=== PATIENT | female | born 1955 | race Caucasian/White ===

== ENCOUNTER → 2018-02-07 | Outpatient (CLI) | payer BC ==
[~2018-02-07] MED LIST: LISI2.5T PO; LORA0.5T PO; NEBI5TAB8 PO; PARO12.52 PO
--- NOTE | 2018-02-07 19:20 | Diagnostic Imaging Report ---
INDICATION: Routine screening. Comparison is made with prior study from 01/26/2016 and 07/28/2014. 2-D and 3-D bilateral screening mammography with CAD was performed. The current study was also evaluated with a Computer Aided Detection (CAD) system. FINDINGS: Scattered fibroglandular densities are identified bilaterally. There is a biopsy clip in the upper outer right breast. No mass or malignant-appearing microcalcifications are seen. There are benign calcifications bilaterally. The axillae are unremarkable. IMPRESSION: No mammographic features suspicious for malignancy are identified. ACR BI-RADS Category 2: Benign findings. Result letter will be mailed to the patient. Note: At least 10% of breast cancer is not imaged by mammography. Dictated by: Dictated on workstation # [id number]
== END ==
LOC: RAD 13:41
PROVIDERS: ATTEND Family Medicine
DX: Z12.31 Encounter for screening mammogram for malignant neoplasm of breast (principal)
CPT/HCPCS: 77067

== ENCOUNTER → 2019-06-24 | Outpatient (CLI) | payer MEDICARE, OTHER ==
--- NOTE | 2019-06-24 17:14 | Diagnostic Imaging Report ---
INDICATION: Postmenopausal female. COMPARISON: 02/20/2008. FINDINGS: AP Spine L1-L4: [BMD (g/cm2): 0.864] [T-Score: -2.8] [Z-Score: -0.9] [BMD Previous: 0.923] [BMD % Change: -6.4] LT Hip Neck: [BMD (g/cm2): 0.819] [T-Score: -1.6] [Z-Score: 0.1] LT Hip Total: [BMD (g/cm2):0.814] [T-Score:-1.5] [Z-Score: -0.1] [BMD Previous: 0.902] [BMD % Change: -9.8] RT Hip Neck: [BMD (g/cm2):0.855] [T-Score:-1.3] [Z-Score:0.4] RT Hip Total: [BMD (g/cm2):0.883] [T-score:-1.0] [Z-Score:0.4] [BMD Previous:0.910] [BMD % Change:-3.0] World Health Organization criteria for BMD interpretation classify patients as Normal (T-score at or above -1.0), Osteopenic (T-score between -1.0 and -2.5) or Osteoporotic (T-score at or below -2.5). LIMITATIONS AND MODIFICATION: None. FRACTURE RISK (FRAX SCORE): Not applicable. IMPRESSION: 1. Osteoporosis. 2. Bone Mineral density has decreased, as detailed above. 3. See below National Osteoporosis Foundation guidelines on when to potentially initiate pharmacologic therapy. Based on the National Osteoporosis Foundation Guidelines, pharmacologic treatment should be initiated in any of the following, unless clinical conditions suggest otherwise: * Any patient with prior fragility fracture of the hip or vertebrae. A spine fracture indicates 5X risk for subsequent spine fracture and 2X risk for subsequent hip fracture. * Osteoporosis (T-score <-2.5). * Postmenopausal women and men age 50 and older with low bone mass/osteopenia (T-score between -1.0 and -2.5) by DXA and 10-year major osteoporotic fracture greater than 20% or a 10-year probability of hip fracture greater than 3%. These fracture risks are supplied above in the FRAX score, if applicable. * Clinician judgment and/or patient preferences may indicate treatment for people with 10-year fracture probabilities above or below these levels. Dictated by: Dictated on workstation # [id number]
== END ==
LOC: RAD 09:58
PROVIDERS: ATTEND Family Medicine
DX: M81.0 Age-related osteoporosis without current pathological fracture (principal); Z78.0 Asymptomatic menopausal state
CPT/HCPCS: 77080

== ENCOUNTER → 2020-07-12 | Outpatient (CLI) | payer MEDICARE, OTHER ==
[~2020-07-12] MED LIST changes: -PARO12.52 PO; +PARO12.53 PO
--- NOTE | 2020-07-12 11:07 | Diagnostic Imaging Report ---
INDICATION: Routine screening. COMPARISON: 02/07/2018 and 01/26/2016. TECHNIQUE: 2D and 3D bilateral screening mammography was performed with CAD. FINDINGS: Scattered fibroglandular densities are identified bilaterally. A biopsy clip in the upper outer right breast is again noted. There are benign calcifications in the breast. No mass or malignant appearing microcalcifications are seen. The axillae are unremarkable. IMPRESSION: No mammographic features suspicious for malignancy are identified. ACR BI-RADS Category 2: Benign findings. Result letter will be mailed to the patient. Note: At least 10% of breast cancer is not imaged by mammography. Dictated by: Dictated on workstation # [id number]
== END ==
LOC: RAD 08:06
PROVIDERS: ATTEND Family Medicine
DX: Z12.31 Encounter for screening mammogram for malignant neoplasm of breast (principal)
CPT/HCPCS: 77063; 77067

== ENCOUNTER 2021-08-02 06:03 | Outpatient (CLI) | payer MEDICARE, OTHER ==
[~2021-08-02] VITALS: Ht 157.5 cm; Wt 62.6 kg
[2021-08-02] MEDS ORDERED: NEBI5TAB8 PO (12:56)
[2021-08-02] MEDS ORDERED: LISI2.5T13 PO (12:56)
[2021-08-02] MEDS ORDERED: VENL50TA2 PO (12:56)
[2021-08-02] MEDS ORDERED: OMG1KC PO (12:56)
[2021-08-02] MEDS ORDERED: CALC-697 PO (12:56)
[2021-08-02] MEDS ORDERED: LORA-404 PO (12:56)
[2021-08-02] MEDS ORDERED: ASPI-1238 PO (12:56)
[2021-08-02] MEDS ORDERED: C,E,1CAP PO (12:56)
== END 2021-08-02 15:26 | disposition home or self-care (01) ==
LOC: PREOP 06:03
PROVIDERS: ATTEND Surgery
DX: Z01.818 Encounter for other preprocedural examination (principal)

== ENCOUNTER 2021-08-09 07:51 | Day surgery (SDC) | payer MEDICARE, OTHER ==
[2021-08-09] VITALS (7 sets, daily range): BP systolic 93–147; BP diastolic 54–80
[~2021-08-09] VITALS: Ht 157 cm; Wt 62.6 kg
[~2021-08-09 07:51] MED LIST changes: +ASPI-1238 PO; +C,E,1CAP PO; +CALC-697 PO; +LISI2.5T13 PO; +LORA-404 PO; +OMG1KC PO; +VENL50TA2 PO
[2021-08-09] MEDS ORDERED: LACTATED RINGERS 1,000 ML IV ONE (07:58)
[2021-08-09] MEDS ORDERED: LACTATED RINGERS 1,000 ML IV STA (08:00)
[2021-08-09] MEDS ORDERED: PROPOFOL INJECTION 50 ML IV ONE (08:24)
[2021-08-09] MEDS ORDERED: MIDAZOLAM 2 MG/2 ML (VERSED) VIAL ONE (08:42)
--- NOTE | 2021-08-09 09:31 | Progress Note-Post Operative ---
Post-Operative Progess Note Surgeon (s)/Brickmason Supervisor (s) Surgeon MILLICENT ALONZO DO Brickmason Supervisor: na Pre-Operative Diagnosis family history colon cancer Post-Operative Diagnosis ascending colon polyp, diverticulosis Procedure & Operative Findings Date of Procedure 08/09/21 Procedure Performed/Findings colonoscopy c hot bx polypectomy Anesthesia Type per pst manager Estimated Blood Loss Estimated blood loss (mL): none Specimens/Packing Specimens Removed ascending colon polyp MILLICENT ALONZO DO Aug 09, 2021 09:31
--- NOTE | 2021-08-09 09:32 | Discharge Inst-Simple/Standard ---
Discharge Inst-Standard Patient Instructions/Follow Up Plan of Care/Instructions/FU: 2 weeks Jerardo Activity as Tolerated: Yes Discharge Diet: Regular Diet (high fiber) MILLICENT ALONZO DO Aug 09, 2021 09:32
--- NOTE | 2021-08-09 17:58 | OPERATIVE REPORT ---
DATE OF SERVICE: 08/09/2021 PREOPERATIVE DIAGNOSIS: Family history of colon cancer. POSTOPERATIVE DIAGNOSIS: Ascending colon polyp, diverticulosis. PROCEDURE: Colonoscopy with hot biopsy polypectomy. SURGEON: Millicent Kurtz DO ANESTHESIA: Per SUPERVISOR VARNISH. ESTIMATED BLOOD LOSS: None. COMPLICATIONS: None. INDICATIONS: The patient is a 66-year-old female needing screening colonoscopy for family history of colon cancer. She understands risks and benefits of procedure and wished to proceed with procedure. Consent was signed in the chart. DESCRIPTION OF PROCEDURE: The patient was taken to the endoscopy suite, placed in left lateral recumbent position. Timeout was performed. Digital rectal exam was performed. There were no palpable polyps, masses or ulcerations. Scope was inserted in the rectum, advanced all the way to cecum with minimal difficulty. Prep was adequate. Scope was slowly retracted back. No polyps, masses or ulcerations in the cecum. In the ascending colon, a small polyp that was flat was present, which hot biopsy polypectomy was performed. Scope was then continuously retracted back. No polyps, masses or ulcerations within the remainder of the ascending, transverse, descending and sigmoid colon. Through the sigmoid colon, moderate amount of diverticulosis present. Scope was continued to be retracted back into the rectum, where it was also retroflexed noting no other pathology. Scope was returned to its normal position, slowly withdrawn until completely removed. The patient tolerated procedure well without any complications. She was taken to recovery room in stable condition. RECOMMENDATIONS: The patient will be on high fiber diet due to diverticulosis. The patient will follow up on pathology of polyp. The patient will need repeat colonoscopy in 5 years if benefits outweigh the risks. Any issues before that be seen at that time. CC: Dr. Seay -- requested, unable to deliver. Job ID: [id number] DocumentID: [id number] Dictated Date: 08/09/2021 09:35:03 Oval Or Circular Glass Cutter Date: 08/09/2021 17:58:34 Dictated By: MILLICENT KURTZ DO
--- NOTE | 2021-08-10 09:54 | Anesthesia-General Post-Op ---
MAC Patient Condition Mental Status/LOC: Same as Preop Cardiovascular: Satisfactory Nausea/Vomiting: Absent Respiratory: Satisfactory Pain: Controlled Complications: Absent Post Op Complications Complications None Follow Up Care/Instructions Patient Instructions None needed. Anesthesiology Discharge Order Discharge Order Patient is doing well, no complaints, stable vital signs, no apparent adverse anesthesia problems. No complications reported per nursing. DIVYA FLORES CRNA Aug 10, 2021 09:54
== END 2021-08-09 10:25 | disposition home or self-care (01) ==
LOC: ENDO 07:51
PROVIDERS: ATTEND Surgery
DX: Z12.11 Encounter for screening for malignant neoplasm of colon (principal); D12.2 Benign neoplasm of ascending colon; K57.30 Diverticulosis of large intestine without perforation or abscess without bleeding; Z80.0 Family history of malignant neoplasm of digestive organs; I10 Essential (primary) hypertension; F41.9 Anxiety disorder, unspecified; Z79.899 Other long term (current) drug therapy; Z79.82 Long term (current) use of aspirin

== ENCOUNTER 2023-02-27 11:06 | Emergency (ER) | payer MEDICARE, OTHER ==
[~2023-02-27 11:06] MED LIST changes: -PARO12.53 PO; +[UNRECOGNIZED DRUG - CODE] PO
--- NOTE | 2023-02-27 11:15 | ED Syncope ---
General Chief Complaint: Dizziness/Syncope Stated Complaint: SYNCOPE Nursing Triage Note: PT TO [facility] 5 BY EMS WITH CC OF SYNCOPE. EMS REPORTS PT WAS AT [employer] WHEN SHE BECAME DIZZY AND PASSED OUT. PT WAS LOWERED TO THE GROUND. PT DENIES HITTING HER HEAD, SOA AND CHEST PAIN. PT REPORTS NAUSEA. Source of Information: Patient, EMS Exam Limitations: No Limitations History of Present Illness Date Seen by Provider: February 27, 2023 Time Seen by Provider: 11:05 Initial Comments 67-year-old female presents to the emergency department today for syncope. She states she worked out this morning, went home and got cleaned up and felt fine. She went to a coffee house with her friend and while there she became acutely dizzy and slightly nauseated. She had a syncopal episode and was lowered to the ground by bystanders. She did not hit her head. She had no chest pain or shortness of breath prior to the event. She does states she has a remote histor y about 25 to 30 years ago of syncopal episodes. She had a meningioma at that time and had "brain surgery" has not had any issues since that time. She feels back to normal at this time. No recent headaches or changes in vision. All other systems reviewed and negative except documented per HPI. Voice recognition software was used to help create this chart Allergies and Home Medications Allergies Coded Allergies: No Known Drug Allergies (Unverified , 02/23/16) Patient Home Medication List Home Medication List Reviewed: Yes Aspirin (Aspirin EC) 81 Mg Tablet.dr, 81 MG PO DAILY, (Reported) Entered as Reported by: AMA RAMON on 08/02/21 125 C,E,Zinc,Copper 11/Xfslz3z/Lut (Ocuvite Adult 50 Plus Softgel) 1 Each Capsule, 1 EACH PO DAILY, (Reported) Entered as Reported by: AMA RAMON on 08/02/21 125 Calcium Carbonate/Vitamin D3 (Calcium 1,000 + D3 Caplet) 1 Each Tablet, 1 EACH PO DAILY, (Reported) Entered as Reported by: AMA HAND on 08/02/21 125 Lisinopril (Lisinopril) 2.5 Mg Tablet, 2.5 MG PO DAILY, (Reported) Entered as Reported by: AMA RAMON on 08/02/21 125 Lorazepam (Ativan) 0.5 Mg Tablet, 0.5 MG PO PRN PRN for AGITATION, (Reported) Entered as Reported by: AMA HAND on 08/02/21 125 Nebivolol HCl (Bystolic) 5 Mg Tablet, 5 MG PO DAILY, (Reported) Entered as Reported by: AMA HAND on 08/02/21 125 [place] 3 Polyunsat Fatty Acids (Fish Oil 1,000 mg Capsule) 1,000 Mg Cap, 1,000 MG PO DAILY, (Reported) Entered as Reported by: AMA HAND on 08/02/21 125 Venlafaxine HCl (Venlafaxine HCl) 50 Mg Tablet, 50 MG PO DAILY, (Reported) Entered as Reported by: AMA HAND on 08/02/211255 Review of Systems Constitutional: see HPI Past Ipkfbqn-Flnyml-Cagrpq Hx Patient Social History Tobacco Use?: No Use of E-Cig and/or Vaping dev: No Substance use?: No Alcohol Use?: No Immunizations Up To Date First/Initial COVID19 Vaccinat: DECEMBER 2020 Second COVID19 Vaccination Dann: JANUARY 2021 Seasonal Allergies Seasonal Allergies: No Past Medical History Surgeries: Yes (BRAIN TUMOR SURGERY 40YRS AGO) Respiratory: No Cardiac: No Neurological: No Female Reproductive Disorders: Denies Sexually Transmitted Disease: No HIV/AIDS: No Genitourinary: No Gastrointestinal: No Musculoskeletal: No Endocrine: No HEENT: No Cancer: No Psychosocial: Yes Sleep Difficulties, Anxiety Integumentary: No Blood Disorders: No Family Medical History Colon cancer Physical Exam Vital Signs Vital Signs - First Documented 02/27/23 11:06 Temp 36.4 Pulse 78 Resp 18 B/P (MAP) 151/78 (102) Pulse Ox 100 O2 Delivery Room Air Capillary Refill : Less Than 3 Seconds Height, Weight, BMI Height: 5'2.00" Weight: 125lbs. 0.0oz. 56.536599tl; 25.39 BMI Method:Stated General Appearance: No Apparent Distress, WD/WN HEENT: PERRL/EOMI, Normal ENT Inspection, Pharynx Normal Neck: Full Range of Motion, Normal Inspection, Non Tender, Supple Cardiovascular: Regular Rate, Rhythm, No Murmur, Normal Peripheral Pulses Respiratory: Chest Non Tender, Lungs Clear, Normal Breath Sounds, No Accessory Muscle Use, No Respiratory Distress Gastrointestinal: Normal Bowel Sounds, No Organomegaly, No Pulsatile Mass, Non Tender, Soft Neurologic/Psychiatric: Alert, Oriented x3, No Motor/Sensory Deficits, Normal Mood/Affect, director process II-XII Norm as Tested Cranial Nerves: Normal Hearing, Normal Speech Coordination/Gait: Normal Finger to Nose Motor/Sensory: No Motor Deficit, No Sensory Deficit Skin: Normal Color, Warm/Dry Progress/Results/Core Measures Results/Orders Lab Results Laboratory Tests Test 02/27/23 11:10 Range/Units White Blood Count 7.7 4.3-11.0 10^3/uL Red Blood Count 3.99 3.80-5.11 10^6/uL Hemoglobin 12.8 11.5-16.0 g/dL Hematocrit 37 35-52 % Mean Corpuscular Volume 93 80-99 fL Mean Corpuscular Hemoglobin 32 25-34 pg Mean Corpuscular Hemoglobin Concent 35 32-36 g/dL Red Cell Distribution Width 12.9 10.0-14.5 % Platelet Count 194 130-400 10^3/uL Mean Platelet Volume 10.4 9.0-12.2 fL Immature Granulocyte % (Auto) 0 % Neutrophils (%) (Auto) 63 42-75 % Lymphocytes (%) (Auto) 27 12-44 % Monocytes (%) (Auto) 8 0-12 % Eosinophils (%) (Auto) 1 0-10 % Basophils (%) (Auto) 1 0-10 % Neutrophils # (Auto) 4.9 1.8-7.8 10^3/uL Lymphocytes # (Auto) 2.1 1.0-4.0 10^3/uL Monocytes # (Auto) 0.6 0.0-1.0 10^3/uL Eosinophils # (Auto) 0.1 0.0-0.3 10^3/uL Basophils # (Auto) 0.1 0.0-0.1 10^3/uL Immature Granulocyte # (Auto) 0.0 0.0-0.1 10^3/uL Sodium Level 138 135-145 MMOL/L Potassium Level 3.5 L 3.6-5.0 MMOL/L Chloride Level 105 98-107 MMOL/L Carbon Dioxide Level 20 L 21-32 MMOL/L Anion Gap 13 5-14 MMOL/L Blood Urea Nitrogen 15 7-18 MG/DL Creatinine 0.86 0.60-1.30 MG/DL Estimat Glomerular Filtration Rate 73 BUN/Creatinine Ratio 17 Glucose Level 152 H 70-105 MG/DL Calcium Level 10.1 8.5-10.1 MG/DL Corrected Calcium 9.8 8.5-10.1 MG/DL Total Bilirubin 0.8 0.1-1.0 MG/DL Aspartate Amino Transf (AST/SGOT) 25 5-34 U/L Alanine Aminotransferase (ALT/SGPT) 14 0-55 U/L Alkaline Phosphatase 46 40-136 U/L Total Protein 6.9 6.4-8.2 GM/DL Albumin 4.4 3.2-4.5 GM/DL My Orders Orders - MEÑO RAWLS DO Comprehensive Metabolic Panel (02/27/23 11:12) Ct Head Wo (02/27/23 11:12) Cbc With Automated Diff (02/27/23 11:12) Ekg Tracing (02/27/23 11:12) Vital Signs/I&O 02/27/23 11:06 Temp 36.4 Pulse 78 Resp 18 B/P (MAP) 151/78 (102) Pulse Ox 100 O2 Delivery Room Air Blood Pressure Mean: 102 Comment Sinus rhythm with a rate of 76 bpm. Normal intervals. Normal axis. No ST or T wave abnormalities. No ectopy. No STEMI. Departure Communication (Admissions) Patient is hemodynamically stable. She has no focal neurologic deficits and feels completely back to normal and at baseline at this time. CT scan of her brain is negative for any acute findings. Electrolytes are unremarkable some very mild hypokalemia. EKG shows no evidence for dysrhythmia with normal intervals. Discharged in stable condition with supportive care and close follow-up. I did advise that CT without contrast is not the ideal method to see meningioma recurrence. If she has continued concerns I recommend she follow-up with her primary doctor for MRI. Impression Primary Impression: Syncope Qualified Codes: R55 - Syncope and collapse Disposition: 01 HOME, SELF-CARE Condition: Stable Departure-Patient Inst. Referrals: JANIE CHOWDARY MD (PCP/Family) Primary Care Physician Patient Instructions: Syncope (Fainting) (DC) Add. Discharge Instructions: No emergent medical condition is identified for your symptoms today. Your CT scan shows no evidence for recurrent mass however this is not the best imaging modality for this. Should you have continued concerns I recommend you follow-up with your primary doctor for possible MRI or CT scan with contrast. Electr olytes are normal outside of some very mild low sodium levels. Increase green leafy vegetables in your diet which should improve this. Return to the emergency department for any severe concerns. Follow-up with your primary doctor for any nonemergent needs All discharge instructions reviewed with patient and/or family. Voiced understanding. MEÑO RAWLS DO February 27, 2023 11:15
[2023-02-27 11:19] LABS: BASOPHILS # (AUTO) 0.1 10^3/uL (0.0-0.1); BASOPHILS % (AUTO) 1 % (0-10); EOSINOPHILS # (AUTO) 0.1 10^3/uL (0.0-0.3); EOSINOPHILS % (AUTO) 1 % (0-10); HEMATOCRIT 37 % (35-52); HEMOGLOBIN 12.8 g/dL (11.5-16.0); LYMPHOCYTES # (AUTO) 2.1 10^3/uL (1.0-4.0); LYMPHOCYTES % (AUTO) 27 % (12-44); MEAN CORPUSCULAR HEMOGLOBIN 32 pg (25-34); MEAN CORPUSCULAR HGB CONC 35 g/dL (32-36); MEAN CORPUSCULAR VOLUME 93 fL (80-99); MEAN PLATELET VOLUME 10.4 fL (9.0-12.2); MONOCYTES # (AUTO) 0.6 10^3/uL (0.0-1.0); MONOCYTES % (AUTO) 8 % (0-12); NEUTROPHILS # (AUTO) 4.9 10^3/uL (1.8-7.8); NEUTROPHILS % (AUTO) 63 % (42-75); PLATELET COUNT 194 10^3/uL (130-400); WHITE BLOOD COUNT 7.7 10^3/uL (4.3-11.0)
[2023-02-27 11:26] LABS: ALBUMIN 4.4 GM/DL (3.2-4.5); POTASSIUM 3.5 MMOL/L (3.6-5.0)
[2023-02-27 11:27] LABS: CALCIUM 10.1 MG/DL (8.5-10.1)
[2023-02-27 11:29] LABS: TOTAL PROTEIN 6.9 GM/DL (6.4-8.2)
[2023-02-27 11:30] LABS: BILIRUBIN,TOTAL 0.8 MG/DL (0.1-1.0)
[2023-02-27 11:32] LABS: CREATININE SERUM 0.86 MG/DL (0.60-1.30)
--- NOTE | 2023-02-27 11:37 | Diagnostic Imaging Report ---
PROCEDURE: CT head without contrast. TECHNIQUE: Multiple contiguous axial images were obtained through the brain without the use of intravenous contrast. Auto Exposure Controls were utilized during the CT exam to meet ALARA standards for radiation dose reduction. INDICATION: Syncope. History of meningioma. COMPARISON: None. FINDINGS: Moderate generalized parenchymal volume loss. Advanced leukoaraiosis. No intracranial hemorrhage, mass effect, hydrocephalus, or extra-axial fluid collections. No CT evidence of an acute territorial infarction. Left frontotemporal craniotomy. No acute osseous findings. Visualized paranasal sinuses and mastoids are clear. IMPRESSION: No acute intracranial CT findings. Dictated by: Dictated on workstation # [id number]
[2023-02-27 11:53] VITALS: BP 151/78
== END 2023-02-27 11:59 | disposition home or self-care (01) ==
LOC: EDUNIT# 11:06 → ER 11:07
DX: R55 Syncope and collapse (principal); E87.6 Hypokalemia
CPT/HCPCS: 36415; 70450; 80053; 85025; 93005

== ENCOUNTER → 2023-03-19 | Outpatient (CLI) | payer MEDICARE, OTHER ==
[~2023-03-19] MED LIST changes: +GADOTERATE 0.5 MMOL/ML (CLARISCAN) 15 ML VIAL IV ONE
--- NOTE | 2023-03-19 09:52 | Diagnostic Imaging Report ---
PROCEDURE: MR imaging of the brain with and without contrast. TECHNIQUE: Multiplanar, multisequence MR imaging of the brain was performed with and without contrast. INDICATION: Syncope. Meningioma resection greater than 20 years ago. COMPARISON: CT head without contrast 02/27/2023. FINDINGS: Mild/moderate generalized parenchymal volume loss. Xsbmczsa-ng-qvnicsez T2 hyperintensities in the supratentorial white matter. No abnormal intracranial enhancement. No restricted water diffusion. No hemosiderin deposition or evidence of intracranial hemorrhage. Normal morphology including the major midline structures, sella, posterior fossa and cerebellar pontine angle. Normal intracranial flow voids. No hydrocephalus or extra-axial fluid collections. Postoperative changes in the globes. Paranasal sinuses and mastoids are unremarkable. IMPRESSION: 1. No acute intracranial MRI findings. No evidence of acute infarction or hemorrhage. No abnormal enhancement. 2. Left frontotemporal craniotomy. 3. Nnym-gz-ejraixkw generalized parenchymal volume loss and twaedicb-wd-avvxlhak chronic small vessel ischemic change. Dictated by: Dictated on workstation # [id number]
== END ==
LOC: RAD 08:01
PROVIDERS: ATTEND Nurse Practitioner Family
DX: I67.82 Cerebral ischemia (principal); Z86.018 Personal history of other benign neoplasm
CPT/HCPCS: 70553

== ENCOUNTER → 2023-07-10 | Outpatient (CLI) | payer MEDICARE, OTHER ==
[~2023-07-10] MED LIST changes: -GADOTERATE 0.5 MMOL/ML (CLARISCAN) 15 ML VIAL IV ONE
--- NOTE | 2023-07-10 17:01 | Diagnostic Imaging Report ---
INDICATION: 68-year-old asymptomatic post menopausal female with history of alcohol use. COMPARISON: 06/24/2019 FINDINGS: AP Spine L1-L4: [BMD (g/cm2): 0.878] [T-Score: -2.7] [Z-Score: -0.7] [BMD Previous: 0.864] [BMD % Change: 1.6] LT Hip Neck: [BMD (g/cm2): 0.827] [T-Score: -1.5] [Z-Score: 0.3] LT Hip Total: [BMD (g/cm2):0.821] [T-Score:-1.5] [Z-Score: 0.2] [BMD Previous: 0.814] [BMD % Change: 0.9] RT Hip Neck: [BMD (g/cm2):0.818] [T-Score:-1.6] [Z-Score:0.3] RT Hip Total: [BMD (g/cm2):0.833] [T-score:-1.4] [Z-Score:0.3] [BMD Previous:0.883] [BMD % Change:-5.7*] *Indicates significant change from prior examination based on 95% confidence level. World Health Organization criteria for BMD interpretation classify patients as Normal (T-score at or above -1.0), Osteopenic (T-score between -1.0 and -2.5) or Osteoporotic (T-score at or below -2.5). LIMITATIONS AND MODIFICATION: None. FRACTURE RISK (FRAX SCORE): The ten year probability of (%): Major Osteoporotic Fracture: [11.5] Hip Fracture: [2.3] IMPRESSION: 1. Osteoporosis. 2. Bone mineral density has decreased by a statistically significant amount, as detailed above. 3. See below National Osteoporosis Foundation guidelines on when to potentially initiate pharmacologic therapy. Based on the National Osteoporosis Foundation Guidelines, pharmacologic treatment should be initiated in any of the following, unless clinical conditions suggest otherwise: * Any patient with prior fragility fracture of the hip or vertebrae. A spine fracture indicates 5X risk for subsequent spine fracture and 2X risk for subsequent hip fracture. * Osteoporosis (T-score <-2.5). * Postmenopausal women and men age 50 and older with low bone mass/osteopenia (T-score between -1.0 and -2.5) by DXA and 10-year major osteoporotic fracture greater than 20% or a 10-year probability of hip fracture greater than 3%. These fracture risks are supplied above in the FRAX score, if applicable. * Clinician judgement and/or patient preferences may indicate treatment for people with 10-year fracture probabilities above or below these levels. Dictated by: Dictated on workstation # [id number]
== END ==
LOC: RAD 12:30
PROVIDERS: ATTEND Family Medicine
DX: M81.0 Age-related osteoporosis without current pathological fracture (principal)
CPT/HCPCS: 77080